=== PATIENT | female | born 1995 | race Caucasian/White ===

== ENCOUNTER 2023-01-15 02:45 | Emergency (ER) | payer OTHER, SELFPAY ==
--- NOTE | ~2023-01-15 | CT_ITS ---
EXAMINATION: CT abdomen pelvis w con INDICATION: Epigastric and right upper quadrant pain TECHNIQUE: Computed tomographic images of the abdomen and pelvis were obtained after the administrati on of 100 cc of Omnipaque 350 intravenous contrast. The dose-length product (DLP) was 1666.01 mGy-cm. Automated exposure control and iterative reconstruction technique were employed. COMPARISON: None available FINDINGS: Minimal dependent atelectasis is present in the lung bases. The heart size is normal. The l iver, spleen, pancreas, gallbladder, and adrenal glands are normal. The kidneys are unremarkable. No pathologically enlarged abdominal or pelvic lymph nodes are identified. There is no free intraperiton eal gas or evidence of bowel obstruction. The appendix is normal. There is a tiny fat-containing umbi lical hernia. There are bilateral L5 pars defects. IMPRESSION: 1. No CT correlate for the patient's symptoms. Reviewed, dictated and finalized at location A.
[2023-01-15 03:02] VITALS: BP 148/99; PULSE 87; RESP 20; TEMP 36.6; O2SAT 99
[2023-01-15 03:10] LABS: Basophils Percent Auto 0.5 % (0.2-1.2); Eosinophils Absolute Auto 0.1 K/mm3 (0-0.3); Hematocrit 42.4 % (37.0-47.0); Hemoglobin 14.4 g/dL (12.0-15.0); Immature Granulocyte Absolute 0.02 K/mm3 (0.00-0.031); Immature Granulocyte Percent A 0.2 % (0-0.5); Lymphocytes Percent Auto 24.4 % (18.3-44.2); Mean Corpuscular Hemoglobin 29.3 pg (26-34); Mean Corpuscular Volume 86.2 fl (80-100); Mean Platelet Volume 9.6 fl (7.4-10.4); Monocytes Absolute Auto 0.7 K/mm3 (0.1-0.6); Monocytes Percent Auto 7.5 % (2.6-8.5); Neutrophils Absolute Auto 5.7 K/mm3 (1.3-6.7); Neutrophils Percent Auto 66.4 % (45.5-73.1); Platelet Count Result 316 k/mm3 (150-375); Red Blood Count 4.92 M/mm3 (4.2-5.4); Red Cell Distribution Width 12.3 % (11.5-14.5); White Blood Count 8.6 K/mm3 (4.5-10.0)
[2023-01-15 03:25] LABS: Alanine Aminotransferase 26 U/L (6-35); Albumin Level 3.6 g/dL (3.5-5.1); Alkaline Phosphatase 122 U/L (38-126); Anion Gap 6 mmol/L (8-16); Aspartate Amino Transferase 39 U/L (14-36); Bilirubin,Total 0.4 mg/dL (0.2-1.3); Blood Urea Nitrogen 12 mg/dL (7-17); Calcium 8.5 mg/dL (8.4-10.2); Carbon Dioxide 25 mmol/L (22-30); Chloride 107 mmol/L (98-107); Estimated CRCL calculation 117 ml/min; Estimated Glomerular Filt Rate > 60; Glucose 114 mg/dL (65-110); Lipase 47 U/L (23-300); Potassium 3.6 mmol/L (3.4-5.0); Sodium 138 mmol/L (137-145)
[2023-01-15 03:48] LABS: Appearance Urine Turbid (Clear); Bacteria Urine None Seen /hpf; Bilirubin Urine Negative (Negative); Blood Urine Negative (Negative); Color Urine Yellow (Yellow); Glucose Urine UA Negative (Negative); Ketones Urine Negative (Negative); Leukocyte Esterase Ur Trace LEU/UL (Negative); Nitrate Urine Negative (Negative); Non Pathogenic Casts 0-2; Protein Urine Negative (Negative); Specific Grav Ur 1.022 (1.001-1.035); Squamous Epithelial Cell Urine None seen /hpf (Few); Urobilinogen Urine 0.2 mg/dL (<2.0)
[2023-01-15] MEDS: ONDANSETRON INJ 4 MG/2 ML VIAL IV PUSH (04:03)
[2023-01-15] MEDS: SODIUM CHLORIDE 0.9% IV 1,000 ML 999 ML IV CONT (04:03)
[2023-01-15] MEDS: MORPHINE SULFATE (*CRX) 4 MG/ML INJ IV PUSH (04:04)
[2023-01-15 04:08] LABS: Add Urine Microscopic? YES
--- NOTE | 2023-01-15 04:24 | ED.GENADULT ---
HPI - General Adult General Chief complaint: Abdominal Pain <Haresh Shah MD - Last Filed: 01/15/23 07:40> Stated complaint: Abd pain, nausea <Haresh Shah MD - Last Filed: 01/15/23 07:40> Time Seen by Provider: 01/15/23 03:37 <Haresh Shah MD - Last Filed: 01/15/23 07:40> History of Present Illness HPI narrative: Patient is a 27-year-old female who presents the emergency department with chief complaint of epigastric pain and right upper quadrant pain. The patient reports that she started having pain approximately 5 AM reports the pain radiates to her back patient reports symptoms or not improved by anything nor they worsened by anything. The patient reports no fevers reports that she has had no intra-abdominal surgeries in the past. <Haresh Shah MD - Last Filed: 01/15/23 07:40> Related Data Allergies/adverse reactions: Allergies Allergy/AdvReac Type Severity Reaction Status Date / Time Latex, Natural Rubber Allergy Other Verified 01/15/23 02:47 <Haresh Shah MD - Last Filed: 01/15/23 07:40> Review of Systems Review of Systems: A 10 system review of systems was completed on the patient and is negative except for what is stated in the HPI. Nursing and ancillary documentation was reviewed. <Haresh Shah MD - Last Filed: 01/15/23 07:40> Exam Narrative: GENERAL: Well-appearing, well-nourished, and in no acute distress. HEAD: Normocephalic, atraumatic. EYES: PERRLA and EOMI. ENT: Nares clear, no rhinorrhea or epistaxis. Mucous membranes moist. NECK: Supple. CHEST: Clear to auscultation. No respiratory distress. HEART: Regular rate and rhythm. No murmur heard. Normal peripheral pulses. ABDOMEN: Soft, tenderness to palpation in the epigastric and right upper quad, nondistended, normal active bowel sounds. EXTREMITIES: Normal range of motion. No edema. SKIN: Warm, dry, no rash. NEURO: No focal deficits. Alert and oriented x3. PSYCH: Normal mood and affect. <Haresh Shah MD - Last Filed: 01/15/23 07:40> Course Course Emergency Course: Patient resting comfortably. Informed of results. Patient felt appropriate for discharge home follow-up outpatient with PCP should symptoms continue. Patient verbalized understanding treatment plan and comfortable. <Surinder Ruiz MD - Last Filed: 01/15/23 08:37> Vital Signs Vital signs: Vital Signs Temperature 97.8 F 01/15/23 03:02 Pulse Rate 87 01/15/23 03:02 Respiratory Rate 20 01/15/23 03:02 Blood Pressure 148/99 H 01/15/23 03:02 Pulse Oximetry 99 01/15/23 03:02 Oxygen Delivery Room Air 01/15/23 03:02 Temperature 97.8 F 01/15/23 03:02 Pulse Rate 68 01/15/23 07:47 Respiratory Rate 18 01/15/23 07:47 Blood Pressure 119/77 01/15/23 07:47 Pulse Oximetry 97 01/15/23 07:47 Oxygen Delivery Room Air 01/15/23 03:02 <Haresh Shah MD - Last Filed: 01/15/23 07:40> Vital Signs Temperature 97.8 F 01/15/23 03:02 Pulse Rate 87 01/15/23 03:02 Respiratory Rate 20 01/15/23 03:02 Blood Pressure 148/99 H 01/15/23 03:02 Pulse Oximetry 99 01/15/23 03:02 Oxygen Delivery Room Air 01/15/23 03:02 Temperature 97.8 F 01/15/23 03:02 Pulse Rate 68 01/15/23 07:47 Respiratory Rate 18 01/15/23 07:47 Blood Pressure 119/77 01/15/23 07:47 Pulse Oximetry 97 01/15/23 07:47 Oxygen Delivery Room Air 01/15/23 03:02 <Surinder Ruiz MD - Last Filed: 01/15/23 08:37> Medical Decision Making MDM Narrative Medical decision making narrative: Differential diagnosis includes gastritis, epigastric pain, cholelithiasis/cholecystitis. Laboratory studies were obtained which showed a normal white blood cell count CMP showed a bilirubin of 0.4 AST was slightly elevated at 39 and ALT is 26 alk phos is 122 urinalysis showed 6-10 white blood cells in the urine Patient has no lower u
[2023-01-15 05:44] VITALS: BP 117/80; PULSE 53; RESP 17; O2SAT 98
[2023-01-15 07:47] VITALS: BP 119/77; PULSE 68; RESP 18; O2SAT 97
[2023-01-15 08:44] VITALS: BP 121/78; PULSE 65; RESP 18; O2SAT 98
== END 2023-01-15 08:46 | disposition home or self-care (01) ==
PROVIDERS: Emergency Medicine; Emergency Provider Emergency Medicine
DX: R10.11 Right upper quadrant pain (principal)
CPT/HCPCS: 36415; 74177; 80053; 81001; 81025; 83690; 85025; 87086; 96361; 96374; 96375; 99284; J2270; J2405; J7030; Q9967